=== PATIENT | female | born 1950 | race Caucasian/White ===

== ENCOUNTER → 2019-07-26 | Outpatient (CLI) | payer MEDICARE ==
--- NOTE | 2019-07-26 14:07 | RADIOLOGY REPORT (SQ) ---
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 TECHNIQUE: Sagittal and Axial imaging includes T1, T2, STIR and gradient echo sequences. LIMITATIONS: None. FINDINGS: ALIGNMENT: Normal. VERTEBRAE: Intact. BONE MARROW: Normal. No marrow replacement or reactive changes. DISCS: Loss of normal water signal throughout the cervical spine consistent with desiccation. HARDWARE: None in the spine. CORD AND BASE OF BRAIN: Normal in size and signal intensity. SOFT TISSUES: No soft tissue masses. C1-C2: No significant spinal stenosis. C2-C3: No significant spinal stenosis or exit foraminal stenosis. C3-C4: No significant spinal stenosis or exit foraminal stenosis. C4-C5: No significant spinal stenosis or exit foraminal stenosis. C5-C6: Broad-based annular disc bulging. There is effacement anterior thecal sac with asymmetric nimesh rowing of the right neural foramina. No significant central stenosis. C6-C7: There is broad-based annular disc bulging with slight effacement anterior thecal sac. No sign ificant central stenosis. Neural foramina are patent. C7-T1: No significant spinal stenosis or exit foraminal stenosis. UPPER THORACIC: Incompletely imaged. No significant spinal stenosis or exit foraminal stenosis. OTHER: No other significant finding. IMPRESSION: Abnormal findings are limited to C5-C6 and C6-C7. There is broad-based annular disc bul ging at both levels with asymmetric narrowing of the right neural foramina at C5-C6. No significant central stenosis at either level. TECHNICAL DOCUMENTATION: JOB ID: [id number] [employer]- All Rights Reserved Reading location - IP/workstation name: [email or web address]
== END ==
LOC: RAD 13:02
PROVIDERS: ATTEND Physician Assistant
DX: M50.823 Other cervical disc disorders at C6-C7 level (principal)
CPT/HCPCS: 72141